=== PATIENT | male | born 1980 | race Caucasian/White ===

== ENCOUNTER 2016-06-12 17:26 | Emergency (ER) | payer OTHER ==
[~2016-06-12] VITALS: Ht 177.8 cm; Wt 166.3 kg
[2016-06-12 17:38] VITALS: BP 164/97
[2016-06-12] MEDS ORDERED: NEO/POLY/HC EAR SUSP 10ML RIGHT EAR SCH (21:00)
== END 2016-06-12 20:21 ==
LOC: ED 19:40
DX: H60.311 Diffuse otitis externa, right ear (principal); K21.9 Gastro-esophageal reflux disease without esophagitis
CPT/HCPCS: 99283